=== PATIENT | male | born 1995 | race Caucasian/White ===

== ENCOUNTER 2016-05-29 20:53 | Emergency (ER) | payer SELFPAY ==
--- NOTE | 2016-05-29 21:56 | ED CLINICAL REPORT ---
Clinical Report - Physicians/Mid Levels [facility] [address] [place] [address] 05/29/2016 20:55 Patient: MARY INTERIANO Time Seen: 22:20 May 29 2016. Arrived- By private vehicle. Historian- patient and significant other. HISTORY OF PRESENT ILLNESS Chief Complaint: ANXIOUS, DEPRESSED and SUICIDAL THOUGHTS. 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 (Patient was multiple stressors over the last 12 months, reports at times he just started spontaneously crying, and being upset, this occasionally occurs at work. He had previously seen [employer], and fiber, however stopped going, and his symptoms have been gradually getting worse over the last 2 months. He denies any new active stressors. Has a safe place to stay, and is here with his girlfriend. He does currently work. Patient denies any active current homicidal or suicidal ideation.). REVIEW OF SYSTEMS No headache or dizziness. All systems otherwise negative, except as recorded above. SOCIAL HISTORY Never smoker. Alcohol use. History of drug use. Has social support. Has place to stay. ADDITIONAL NOTES The nursing notes have been reviewed. PHYSICAL EXAM Vital Signs: 05/29/2016 21:11 BP: 140/73. HR: 90. RR: 18. O2 saturation: 100%. Temp: 98.4 F. Pain level now: 0/10. Appearance: Alert. No acute distress. Appearance is normal. No apparent distress. Does not appear older than stated age. Neck: Normal inspection. CVS: Normal heart rate and rhythm. Heart sounds normal. Respiratory: Breath sounds normal. Chest nontender. Abdomen: Soft. Skin: Skin warm. Psych / Neuro: Mood and affect normal. Cognition normal. Thought process and content normal. Insight and judgement normal. Cranial nerves normal (as tested). No cerebellar findings. No abnormal finger-nose test. Normal gait. Not depressed. PROGRESS AND PROCEDURES Course of Care: Here in the ER patient has no active suicidal or homicidal ideation. He appears his stated age, and is in no distress, speaking full sciences, but I contact, is very reasonable and sentence structure. He does not appear under any influence. When asked what he desires, he states he is ready to start, treatment for some of his issues, discussed options with patient, and if he needed any emergent interventions, and at this time he states he does not. He feels safe at his residence , and denies any suicidal ideation. Contacted is [facility], who will contact patient tomorrow for an appointment. Patient is stable. Patient/family counseled. Disposition: Discharged. CLINICAL IMPRESSION Anxiety reaction. Depression. INSTRUCTIONS ([facility] will call you tomorrow for an appointment/ follow up Address: [address] [place] [phone] ). Prescription Medications: Vistaril 100 mg: take 1 orally every 8 hours for 3 days as needed for itching. Dispense ten (10). No refill. Substitution is permissible. (Electronically signed by Hailee Chacon P.A.-C 05/29/2016 22:44)
--- NOTE | 2016-05-29 21:56 | ED ORDER SUMMARY ---
..... Patient: MARY INTERIANO OrderSheet [facility] VisitID: [id number] [address] [place] [address] 20y, M Registration Date/Time: 05/29/2016 ORDER SHEET Weight: 97.5 kg Allergies: No Known Drug Allergy GENERAL ORDERS: MEDICATION ORDERS: Vistaril PO 100 mg (NOW) (21:53 05/29/2016 Randy Patel.AKaren-Lefty) (22:04 Yasir Mejía.Jennifer) IV FLUIDS: ORDER SHEET NOTES: [Electronically signed by Terri Fisher R.N. (22:05 05/29/2016)] [Electronically signed by Hailee Chacon P.A.-C (22:44 05/29/2016)] [Electronically locked/signed by Terri Fisher R.N. (22:05 05/29/2016)]
--- NOTE | 2016-05-29 21:56 | ED CLINICAL REPORT ---
Clinical Report - Physicians/Mid Levels [facility] [address] [place] [place] [address] 05/29/2016 20:55 Patient: MARY INTERIANO Time Seen: 22:20 May 29 2016. Arrived- By private vehicle. Historian- patient and significant other. HISTORY OF PRESENT ILLNESS Chief Complaint: ANXIOUS, DEPRESSED and SUICIDAL THOUGHTS. 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 (Patient was multiple stressors over the last 12 months, reports at times he just started spontaneously crying, and being upset, this occasionally occurs at work. He had previously seen [employer], and fiber, however stopped going, and his symptoms have been gradually getting worse over the last 2 months. He denies any new active stressors. Has a safe place to stay, and is here with his girlfriend. He does currently work. Patient denies any active current homicidal or suicidal ideation.). REVIEW OF SYSTEMS No headache or dizziness. All systems otherwise negative, except as recorded above. SOCIAL HISTORY Never smoker. Alcohol use. History of drug use. Has social support. Has place to stay. ADDITIONAL NOTES The nursing notes have been reviewed. PHYSICAL EXAM Vital Signs: 05/29/2016 21:11 BP: 140/73. HR: 90. RR: 18. O2 saturation: 100%. Temp: 98.4 F. Pain level now: 0/10. Appearance: Alert. No acute distress. Appearance is normal. No apparent distress. Does not appear older than stated age. Neck: Normal inspection. CVS: Normal heart rate and rhythm. Heart sounds normal. Respiratory: Breath sounds normal. Chest nontender. Abdomen: Soft. Skin: Skin warm. Psych / Neuro: Mood and affect normal. Cognition normal. Thought process and content normal. Insight and judgement normal. Cranial nerves normal (as tested). No cerebellar findings. No abnormal finger-nose test. Normal gait. Not depressed. PROGRESS AND PROCEDURES Course of Care: Here in the ER patient has no active suicidal or homicidal ideation. He appears his stated age, and is in no distress, speaking full sciences, but I contact, is very reasonable and sentence structure. He does not appear under any influence. When asked what he desires, he states he is ready to start, treatment for some of his issues, discussed options with patient, and if he needed any emergent interventions, and at this time he states he does not. He feels safe at his residence , and denies any suicidal ideation. Contacted is [facility], who will contact patient tomorrow for an appointment. Patient is stable. Patient/family counseled. Disposition: Discharged. CLINICAL IMPRESSION Anxiety reaction. Depression. INSTRUCTIONS ([facility] will call you tomorrow for an appointment/ follow up Address: [address] [place] [phone] ). Prescription Medications: Vistaril 100 mg: take 1 orally every 8 hours for 3 days as needed for itching. Dispense ten (10). No refill. Substitution is permissible. (Electronically signed by Hailee Chacon P.A.-C 05/29/2016 22:44)
--- NOTE | 2016-05-29 21:56 | ED ORDER SUMMARY ---
..... Patient: MARY INTERIANO OrderSheet [facility] VisitID: [id number] [address] [place] [address] 20y, M Registration Date/Time: 05/29/2016 ORDER SHEET Weight: 97.5 kg Allergies: No Known Drug Allergy GENERAL ORDERS: MEDICATION ORDERS: Vistaril PO 100 mg (NOW) (21:53 05/29/2016 Randy Patel.AKaren-Lefty) (22:04 Yasir Mejía.Jennifer) IV FLUIDS: ORDER SHEET NOTES: [Electronically signed by Terri Fisher R.N. (22:05 05/29/2016)] [Electronically signed by Hailee Chacon P.A.-C (22:44 05/29/2016)] [Electronically locked/signed by Terri Fisher R.N. (22:05 05/29/2016)]
--- NOTE | 2016-05-29 21:56 | ED NURSING NOTES ---
Clinical Report - Nurses [facility] [address] [place] [address] 05/29/2016 20:55 Patient: MARY INTERIANO TRIAGE Triage time 21:11. Acuity: LEVEL 3. Chief Complaint: DEPRESSION, SUICIDAL THOUGHTS and ANXIETY. --21:16 Cecily R.N. 21:11 05/29/16. BP: 140/73. HR: 90. RR: 18. O2 saturation: 100%. Temp: 98.4 F. Pain level now: 0/10. --21:16 TerriB R.N. Weight: 97.5 kg. Height/Length: 73 inches. BMI: 28.4. Growth Chart Percentile: Weight: 96.2%. Height/Length: 88.8%. --21:15 Cecily R.N. Medications None. --21:13 Cecily R.N. Allergies No Known Drug Allergy. --21:14 Cecily R.N. History Arrived by private vehicle. Historian: patient. ( this is an on going issue for this pt, pt states he has lots of life stressors, pt does not have a plan to hurt himself). He has had anxiety and describes feelings of depression. Treatment DRYWALL WORKER: None. SOCIAL HX: Never smoker. Alcohol use. History of drug use: marijuana. No infectious disease exposure. SELF HARM ASSESSMENT: A self harm assessment was performed. The patient answered "yes" to the question "Have you recently felt down, depressed, or hopeless?", "Have you noticed less interest or pleasure in doing things?", "Do you have thoughts of harming or killing yourself?" and "Have you ever tried to hurt yourself before today?" and "no" to the question "Are you here because you tried to hurt yourself?", "Have you recently had thoughts about harming or killing others?" and "Do you have any dangerous items in your possession?". The patient reports their behavior included suicidal comments. In the ED the patient has made suicidal comments. FALL RISK ASSESSMENT: Fall risk assessment completed. No fall risk identified. NUTRITIONAL RISK ASSESSMENT: The nutritional risk assessment revealed no deficiencies. FUNCTIONAL ASSESSMENT: Functional assessment: no impairments noted. LEARNING NEEDS ASSESSMENT: The learning needs assessment revealed no barriers. SKIN INTEGRITY ASSESSMENT: Skin integrity risk assessment completed. No skin integrity risk identified. --21:16 Louisa Tony PAST MEDICAL HX: Immunizations: up-to-date. --21:16 Louisa Tony PROBLEMS: no known problems. ADDITIONAL SURGERIES: no known surgeries. Interventions ID band on patient. To treatment room. --21:16 Louisa Tony PHYSICAL ASSESSMENT GENERAL / NEURO / PSYCH: Alert. Oriented X 4. Appears in no acute distress. Speech within normal limits. Affect appears normal. Patient appears calm and cooperative. Good eye contact. Patient appears well-nourished and neat and clean. RESPIRATORY: Respirations not labored. Breath sounds within normal limits. CVS: Normal heart rate and rhythm. Capillary refill less than 2 seconds. GI / : Abdomen soft and nontender. Bowel sounds within normal limits. SKIN: Skin intact. Skin is warm and dry. Skin color is within normal limits. --21:16 Louisa Tony NURSING PROGRESS NOTES Next day phone call follow up arranged with [facility]. Patient aware, phone number confirmed. --21:58 ConradQueboni, Olga Lidia, ER Tech1 22:03 05/29/2016 Vistaril (HydrOXYzine Pamoate) PO 100 mg given. Allergies verified, confirmed 5 rights and sedative warning given to the patient. --22:04 Louisa Tony DISPOSITION / DISCHARGE Departure time: 22:05. Condition at departure: improved. No learning barriers present. Discharge instructions provided and reviewed with the patient. Reviewed warnings. Reviewed medication(s) side effects, precautions, dosing and course information. Prescription(s) given to the patient. Treatments reviewed. Reviewed referrals. Follow up contact number. Patient verbalized understanding. Written instructions provided in Tanzanian. No diet instructions, activity restrictions or stop smoking instructions. No work note given or school note given. The patient was discharged by the physician child development assistant. He was discharged home and accompanied by bottle house quality control technician. He left the Emergency Department ambulatory and via private vehicle. State Historical [employer] Director driving. FALL RISK ASSESSMENT: Fall risk assessment completed. No fall risk identified. --22:05 Louisa Tony 22:04 05/29/16. BP: 138/74. HR: 78. RR: 18. O2 saturation: 99%. Temp: deferred. Pain level now: 0/10. --22:05 Louisa Tony Locked/Released at 05/29/2016 22:05 by Louisa Tony
--- NOTE | 2016-05-29 21:56 | ED NURSING NOTES ---
Clinical Report - Nurses [facility] [address] [place] [address] 05/29/2016 20:55 Patient: MARY INTERIANO TRIAGE Triage time 21:11. Acuity: LEVEL 3. Chief Complaint: DEPRESSION, SUICIDAL THOUGHTS and ANXIETY. --21:16 Cecily R.N. 21:11 05/29/16. BP: 140/73. HR: 90. RR: 18. O2 saturation: 100%. Temp: 98.4 F. Pain level now: 0/10. --21:16 TerriB R.N. Weight: 97.5 kg. Height/Length: 73 inches. BMI: 28.4. Growth Chart Percentile: Weight: 96.2%. Height/Length: 88.8%. --21:15 Cecily R.N. Medications None. --21:13 Cecily R.N. Allergies No Known Drug Allergy. --21:14 Cecily R.N. History Arrived by private vehicle. Historian: patient. ( this is an on going issue for this pt, pt states he has lots of life stressors, pt does not have a plan to hurt himself). He has had anxiety and describes feelings of depression. 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 SOCIAL HX: Never smoker. Alcohol use. History of drug use: marijuana. No infectious disease exposure. SELF HARM ASSESSMENT: A self harm assessment was performed. The patient answered "yes" to the question "Have you recently felt down, depressed, or hopeless?", "Have you noticed less interest or pleasure in doing things?", "Do you have thoughts of harming or killing yourself?" and "Have you ever tried to hurt yourself before today?" and "no" to the question "Are you here because you tried to hurt yourself?", "Have you recently had thoughts about harming or killing others?" and "Do you have any dangerous items in your possession?". The patient reports their behavior included suicidal comments. In the ED the patient has made suicidal comments. FALL RISK ASSESSMENT: Fall risk assessment completed. No fall risk identified. NUTRITIONAL RISK ASSESSMENT: The nutritional risk assessment revealed no deficiencies. FUNCTIONAL ASSESSMENT: Functional assessment: no impairments noted. LEARNING NEEDS ASSESSMENT: The learning needs assessment revealed no barriers. SKIN INTEGRITY ASSESSMENT: Skin integrity risk assessment completed. No skin integrity risk identified. --21:16 Louisa Tony PAST MEDICAL HX: Immunizations: up-to-date. --21:16 Louisa Tony PROBLEMS: no known problems. ADDITIONAL SURGERIES: no known surgeries. Interventions ID band on patient. To treatment room. --21:16 Louisa Tony PHYSICAL ASSESSMENT GENERAL / NEURO / PSYCH: Alert. Oriented X 4. Appears in no acute distress. Speech within normal limits. Affect appears normal. Patient appears calm and cooperative. Good eye contact. Patient appears well-nourished and neat and clean. RESPIRATORY: Respirations not labored. Breath sounds within normal limits. CVS: Normal heart rate and rhythm. Capillary refill less than 2 seconds. GI / : Abdomen soft and nontender. Bowel sounds within normal limits. SKIN: Skin intact. Skin is warm and dry. Skin color is within normal limits. --21:16 Louisa Tony NURSING PROGRESS NOTES Next day phone call follow up arranged with [facility]. Patient aware, phone number confirmed. --21:58 ConradQueboni, Olga Lidia, ER Tech1 22:03 05/29/2016 Vistaril (HydrOXYzine Pamoate) PO 100 mg given. Allergies verified, confirmed 5 rights and sedative warning given to the patient. --22:04 Louisa Tony DISPOSITION / DISCHARGE Departure time: 22:05. Condition at departure: improved. No learning barriers present. Discharge instructions provided and reviewed with the patient. Reviewed warnings. Reviewed medication(s) side effects, precautions, dosing and course information. Prescription(s) given to the patient. Treatments reviewed. Reviewed referrals. Follow up contact number. Patient verbalized understanding. Written instructions provided in Bulgarian. No diet instructions, activity restrictions or stop smoking instructions. No work note given or school note given. The patient was discharged by the physician neurosurgical physician assistant. He was discharged home and accompanied by ab initio etl developer. He left the Emergency Department ambulatory and via private vehicle. Cyber Security Instructor driving. FALL RISK ASSESSMENT: Fall risk assessment completed. No fall risk identified. --22:05 Louisa Tony 22:04 05/29/16. BP: 138/74. HR: 78. RR: 18. O2 saturation: 99%. Temp: deferred. Pain level now: 0/10. --22:05 Louisa Tony Locked/Released at 05/29/2016 22:05 by Louisa Tony
--- NOTE | 2016-05-29 22:44 | ED DISCHARGE INSTRUCTIONS ---
Patient: MARY INTERIANO General Instructions [facility] VisitID: [id number] [place] [address] 20y, M Registration Date/Time: 05/29/2016 Anxiety reaction. Depression. INSTRUCTIONS ([facility] will call you tomorrow for an appointment/ follow up Address: [address] [place] [address] ). Prescription Medications: Vistaril 100 mg: take 1 orally every 8 hours for 3 days as needed for itching. Dispense ten (10). No refill. Substitution is permissible. (Electronically signed by Hailee Chacon P.A.-C 05/29/2016 22:44)
--- NOTE | 2016-05-29 22:44 | ED MAR SUMMARY ---
..... Medication Administration Record Located Within [facility] [address] [place] [address] Patient: MARY INTERIANO Visit ID: [id number] 20y, M Weight: 97.5 kg Height/Length: 73 in BMI: 28.4 ALLERGIES: No Known Drug Allergy Given 22:03 05/29/2016 Louisa Tony Medication Administered: VISTARIL [PO] (HYDROXYZINE PAMOATE), Dose: 100 mg PO. Medication Ordered: Vistaril PO 100 mg (NOW).
--- NOTE | 2016-05-29 22:44 | ED MAR SUMMARY ---
..... Medication Administration Record [facility] [address] [place] [address] Patient: MARY INTERIANO Visit ID: [id number] 20y, M Weight: 97.5 kg Height/Length: 73 in BMI: 28.4 ALLERGIES: No Known Drug Allergy Given 22:03 05/29/2016 Louisa Tony Medication Administered: VISTARIL [PO] (HYDROXYZINE PAMOATE), Dose: 100 mg PO. Medication Ordered: Vistaril PO 100 mg (NOW).
--- NOTE | 2016-05-29 22:44 | ED MED RECONCILIATION SUMMARY ---
Patient: MARY INTERIANO Medication Reconciliation Report [facility] VisitID: [id number] [address] [place] [address] 20y, M Registration Date/Time: 05/29/2016 Weight: 97.5 kg Height/Length: 73 in. BMI: 28.4 ALLERGIES: No Known Drug Allergy The patient's Home Medications are listed below: NONE. The source(s) of the original Home Medication information: Not obtained. The following Medications were given to the patient in the Emergency Department: Vistaril [PO] PO 100 mg, administered: 05/29/2016 10:03:00 PM The following Medications were prescribed to the patient: Vistaril 100 mg: take 1 orally every 8 hours for 3 days as needed for itching. Dispense ten (10). No refill. Substitution is permissible. -- Hailee Chacon P.A.-C
--- NOTE | 2016-05-29 22:44 | ED MED RECONCILIATION SUMMARY ---
Patient: MARY INTERIANO Medication Reconciliation Report [facility] VisitID: [id number] [address] [place] [address] 20y, M Registration Date/Time: 05/29/2016 Weight: 97.5 kg Height/Length: 73 in. BMI: 28.4 ALLERGIES: No Known Drug Allergy The patient's Home Medications are listed below: NONE. The source(s) of the original Home Medication information: Not obtained. The following Medications were given to the patient in the Emergency Department: Vistaril [PO] PO 100 mg, administered: 05/29/2016 10:03:00 PM The following Medications were prescribed to the patient: Vistaril 100 mg: take 1 orally every 8 hours for 3 days as needed for itching. Dispense ten (10). No refill. Substitution is permissible. -- Hailee Chacon P.A.-C
--- NOTE | 2016-05-29 22:44 | ED DISCHARGE INSTRUCTIONS ---
Patient: MARY INTERIANO General Instructions [facility] VisitID: [id number] [place] [address] 20y, M Registration Date/Time: 05/29/2016 Anxiety reaction. Depression. INSTRUCTIONS ([facility] will call you tomorrow for an appointment/ follow up Address: [address] [place] [address] ). Prescription Medications: Vistaril 100 mg: take 1 orally every 8 hours for 3 days as needed for itching. Dispense ten (10). No refill. Substitution is permissible. (Electronically signed by Hailee Chacon P.A.-C 05/29/2016 22:44)
== END 2016-05-29 22:06 | disposition home or self-care (01) ==
LOC: ED SRH 20:53
DX: F41.8 Other specified anxiety disorders (principal)